=== PATIENT | male | born 1930 | race Caucasian/White ===

== ENCOUNTER → 2016-11-11 | Outpatient (CLI) | payer MEDICARE ==
[~2016-11-11] MED LIST: ALBUAER3 INH; AMLO5 PO; ASPI-147 PO; ATOR10TA15 PO; LUTE20CA PO; MULT1TAB85 PO; SOTA80TA PO; SPIRCAP INH; SYMB160A INH
[2016-11-11 13:28] LABS: AUTOMATED NEUTROPHIL # 3.8 TH/MM3 (1.8-7.7); BASOPHIL # 0.1 TH/MM3 (0-0.2); BASOPHIL % 1.4 % (0.0-2.0); EOSINOPHIL # 0.3 TH/MM3 (0-0.4); HEMATOCRIT 40.1 % (39.0-51.0); HEMO FLAGS DIFF FINAL; LYMPH % 23.1 % (9.0-44.0); LYMPHOCYTE # 1.5 TH/MM3 (1.0-4.8); MEAN CELL VOLUME 100.4 FL (80.0-100.0); MEAN CORPUSCULAR HEMOGLOBIN 35.5 PG (27.0-34.0); MEAN CORPUSCULAR HGB CONC 35.4 % (32.0-36.0); MONO % 11.1 % (0.0-8.0); NEUT % 60.4 % (16.0-70.0); PLATELET COUNT 209 TH/MM3 (150-450); RED BLOOD COUNT 3.99 MIL/MM3 (4.50-5.90); RED CELL DISTRIBUTION WIDTH 13.2 % (11.6-17.2); WHITE BLOOD COUNT 6.3 TH/MM3 (4.0-11.0)
[2016-11-11 13:49] LABS: ANION GAP 6 MEQ/L (5-15); AST (GOT) 20 U/L (15-37); BLOOD UREA NITROGEN 12 MG/DL (7-18); CHLORIDE 99 MEQ/L (98-107); GLOMERULAR FILTRATION RATE 72 ML/MIN (>89); GLUCOSE,FASTING 100 MG/DL (74-99); SODIUM (NA) 134 MEQ/L (136-145)
[2016-11-11 13:56] LABS: ALKALINE PHOSPHATASE 83 U/L (45-117); ALT (GPT) 21 U/L (12-78); LDL CHOLESTEROL 57 MG/DL (0-99); TOTAL BILIRUBIN ADULT 0.6 MG/DL (0.2-1.0)
== END ==
LOC: PLAB 08:46
PROVIDERS: ATTEND Family Medicine
DX: R73.01 Impaired fasting glucose (principal); J44.9 Chronic obstructive pulmonary disease, unspecified; E78.2 Mixed hyperlipidemia; I48.91 Unspecified atrial fibrillation
CPT/HCPCS: 36415; 80053; 80061; 85025

== ENCOUNTER → 2017-02-19 | Outpatient (CLI) | payer MEDICARE ==
[2017-02-19 08:22] LABS: BLOOD GAS BASE EXCESS 1.2 mmol/L (-2-2); BLOOD GAS CARBOXYHEMOGLOBIN 1.6 % (0-4); BLOOD GAS HCO3 25 mmol/L (22-26); BLOOD GAS METHEMOGLOBIN 0.9 % (0-2); BLOOD GAS O2 HGB SATURATION 92 % (90-100); BLOOD GAS OXYGEN CONTENT 18.5 Vol % (12.0-20.0); BLOOD GAS PCO2 38 mmHG (38-42); BLOOD GAS PO2 70 mmHG (61-120); BLOOD GAS TOTAL HGB 14.3 G/DL (12.0-16.0); CRITICAL VALUE NO; DRAW SITE RT RADIAL; FIO2 21 %; NUMBER OF ARTERIAL PUNCTURES 1; STAT NO; TEMP CORR TO 98.6; ULNAR PULSE PRESENT
--- NOTE | 2017-03-06 10:15 | RSPPFT ---
DATE OF PROCEDURE: 02/19/17 COMMENTS: VOLUMES DYNAMIC: FVC normal; FEV1 severely reduced. STATIC: RV, FRC moderately increased; TLC normal. FLOWS: FEV1% and FEF 25-75 severely reduced. DIFFUSION: Severely reduced. FLOW VOLUME LOOP; Pattern of variable intrathoracic airways obstruction. IMPRESSION: Very severe obstructive ventilator defect with hyperinflation and a very severe reduction in diffusion. No improvement post-bronchodilator noted.
== END ==
LOC: PHRSP 07:44
PROVIDERS: ATTEND Internal Medicine
DX: J44.9 Chronic obstructive pulmonary disease, unspecified (principal)
CPT/HCPCS: 36600; 82805; 94060; 94620; 94726; 94729

== ENCOUNTER → 2017-04-22 | Outpatient (CLI) | payer MEDICARE | LOC: PLAB 11:30 | PROVIDERS: ATTEND Internal Medicine | DX: J40 Bronchitis, not specified as acute or chronic (principal) | CPT/HCPCS: 87015; 87070; 87116; 87205; 87206 ==

== ENCOUNTER → 2017-05-18 | Outpatient (CLI) | payer MEDICARE ==
[2017-05-18 13:55] LABS: AUTOMATED NEUTROPHIL # 3.9 TH/MM3 (1.8-7.7); BASOPHIL # 0.1 TH/MM3 (0-0.2); BASOPHIL % 1.1 % (0.0-2.0); EOSINOPHIL # 0.2 TH/MM3 (0-0.4); EOSINOPHIL % 3.7 % (0.0-4.0); HEMATOCRIT 41.4 % (39.0-51.0); HEMO FLAGS DIFF FINAL; LYMPHOCYTE # 1.7 TH/MM3 (1.0-4.8); MEAN CELL VOLUME 103.4 FL (80.0-100.0); MEAN CORPUSCULAR HEMOGLOBIN 35.7 PG (27.0-34.0); MEAN CORPUSCULAR HGB CONC 34.6 % (32.0-36.0); MONO % 10.5 % (0.0-8.0); NEUT % 58.7 % (16.0-70.0); PLATELET COUNT 185 TH/MM3 (150-450); RED BLOOD COUNT 4.01 MIL/MM3 (4.50-5.90); RED CELL DISTRIBUTION WIDTH 13.3 % (11.6-17.2); WHITE BLOOD COUNT 6.6 TH/MM3 (4.0-11.0)
[2017-05-18 14:22] LABS: ANION GAP 6 MEQ/L (5-15); AST (GOT) 19 U/L (15-37); BICARBONATE 27.8 MEQ/L (21.0-32.0); BLOOD UREA NITROGEN 11 MG/DL (7-18); CHLORIDE 101 MEQ/L (98-107); GLOMERULAR FILTRATION RATE 77 ML/MIN (>89); GLUCOSE,FASTING 111 MG/DL (74-99); POTASSIUM 4.6 MEQ/L (3.5-5.1); SODIUM (NA) 135 MEQ/L (136-145)
[2017-05-18 14:29] LABS: ALKALINE PHOSPHATASE 84 U/L (45-117); ALT (GPT) 22 U/L (12-78); HDL CHOLESTEROL 72.1 MG/DL (40.0-60.0); LDL CHOLESTEROL 50 MG/DL (0-99); TOTAL BILIRUBIN ADULT 0.6 MG/DL (0.2-1.0)
== END ==
LOC: PLAB 10:06
PROVIDERS: ATTEND Family Medicine
DX: I10 Essential (primary) hypertension (principal); E78.5 Hyperlipidemia, unspecified; J44.9 Chronic obstructive pulmonary disease, unspecified; R06.6 Hiccough
CPT/HCPCS: 36415; 80053; 80061; 85025

== ENCOUNTER 2017-10-06 14:23 | Emergency (ER) | payer MEDICARE ==
[2017-10-06 14:57] VITALS: BP 123/72; PULSE 73; RESP 18; TEMP 97.6; O2SAT 93
[2017-10-06 15:33] LABS: AUTOMATED NEUTROPHIL # 3.6 TH/MM3 (1.8-7.7); BASOPHIL # 0.1 TH/MM3 (0-0.2); BASOPHIL % 1.4 % (0.0-2.0); EOSINOPHIL # 0.2 TH/MM3 (0-0.4); EOSINOPHIL % 3.5 % (0.0-4.0); HEMATOCRIT 39.2 % (39.0-51.0); HEMOGLOBIN 14.4 GM/DL (13.0-17.0); LYMPH % 24.9 % (9.0-44.0); LYMPHOCYTE # 1.5 TH/MM3 (1.0-4.8); MEAN CELL VOLUME 102.4 FL (80.0-100.0); MEAN CORPUSCULAR HEMOGLOBIN 37.6 PG (27.0-34.0); MEAN PLATELET VOLUME 7.5 FL (7.0-11.0); MONO % 11.8 % (0.0-8.0); MONOCYTE # 0.7 TH/MM3 (0-0.9); NEUT % 58.4 % (16.0-70.0); PLATELET COUNT 253 TH/MM3 (150-450); RED BLOOD COUNT 3.82 MIL/MM3 (4.50-5.90); RED CELL DISTRIBUTION WIDTH 13.4 % (11.6-17.2); WHITE BLOOD COUNT 6.1 TH/MM3 (4.0-11.0)
[2017-10-06 15:35] LABS: INTERNATIONAL NORMALIZED RATIO 1.1 RATIO; PROTHROMBIN TIME - PATIENT 11.2 SEC (9.8-11.6)
[2017-10-06 15:40] LABS: MEAN CORPUSCULAR HGB CONC 36.7 % (32.0-36.0)
--- NOTE | 2017-10-06 15:40 | RADRPT ---
EXAM DATE/TIME: 10/06/2017 15:20 [place] COMPARISON: No previous studies available for comparison. INDICATIONS : Short of breath, sent by doctor. MEDICAL HISTORY : None. SURGICAL HISTORY : None. ENCOUNTER: Initial ACUITY: 1 day PAIN SCORE: 0/10 LOCATION: Bilateral chest FINDINGS: PA and lateral views of the chest demonstrate the lungs to be symmetrically aerated without evidence of mass, infiltrate or effusion. The cardiomediastinal contours are unremarkable. Osseous structure s are intact. CONCLUSION: 1. No acute cardiopulmonary findings. Roberto Mccrary MD on October 06, 2017 at 15:34 Board Certified Radiologist. This report was verified electronically.
[2017-10-06 15:51] LABS: ALBUMIN 3.6 GM/DL (3.4-5.0); ALT (GPT) 25 U/L (12-78); AST (GOT) 21 U/L (15-37); BICARBONATE 28.9 MEQ/L (21.0-32.0); BLOOD UREA NITROGEN 13 MG/DL (7-18); CALCIUM 8.8 MG/DL (8.5-10.1); CHLORIDE 101 MEQ/L (98-107); CREATININE 0.97 MG/DL (0.60-1.30); GLOMERULAR FILTRATION RATE 74 ML/MIN (>89); GLUCOSE,RANDOM 106 MG/DL (74-106); MAGNESIUM 2.1 MG/DL (1.5-2.5); SODIUM (NA) 136 MEQ/L (136-145)
[2017-10-06 15:55] LABS: ALKALINE PHOSPHATASE 94 U/L (45-117); TOTAL BILIRUBIN ADULT 0.4 MG/DL (0.2-1.0); TOTAL PROTEIN 7.2 GM/DL (6.4-8.2); TROPONIN I LESS THAN 0.02 NG/ML (0.02-0.05)
[2017-10-06 16:44] VITALS: BP 170/76; PULSE 72; RESP 25; O2SAT 95
[2017-10-06] MEDS ORDERED: methylPREDNISolone SOD SUCC 125 MG/2 ML VIAL IV PUSH ONE (16:45)
[2017-10-06] MEDS: RESP: ALBUTEROL 2.5 MG/IPRATROPIUM 0.5 MG NEB (SCH) INH ×2 (16:51→16:52)
[2017-10-06 16:53] VITALS: O2SAT 97
--- NOTE | 2017-10-06 18:20 | PD ---
HPI Chief Complaint: Respiratory Symptoms Time Seen by Provider: 16:28 Travel History International Travel<30 days: No Contact w/Intl Traveler<30days: No Traveled to known affect area: No History of Present Illness HPI Patient is a 87 year old male who comes in complaining of SOB. He says he has been feeling short of breath for the past few days. He says he has history of COPD, he takes multiple medications, and uses oxygen at night. He says that he has been getting more short of breath on exertion. He says it does feel like his COPD. He denies having any chest pain. He denies cough or cold or fevers or chills. 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 Severity is mild to moderate. PFSH Past Medical History Heart Rhythm Problems: Yes (A FIB) COPD: Yes Diminished Hearing: No Hypertension: Yes Immunizations Current: Yes Myocardial Infarction: Yes Tetanus Vaccination: < 5 Years Influenza Vaccination: Yes Past Surgical History Abdominal Surgery: Yes (HERNIA) Eye Surgery: Yes Social History Alcohol Use: Yes (OCCASIONAL) Tobacco Use: No (50 pack years) Substance Use: No Allergies-Medications (Allergen,Severity, Reaction): Coded Allergies: No Known Allergies (Unverified , 07/08/16) Reported Meds & Prescriptions Reported Meds & Active Scripts Active Prednisone 50 Mg Tab 50 Mg PO DAILY 4 Days Reported Spiriva Handihaler (Tiotropium Inh) 18 Mcg Cap 18 Mcg INH DAILY 1 capsule = 18 mcg Sotalol (Sotalol HCl) 80 Mg Tab 40 Mg PO BID Multivitamin Men (Multiple Vitamins W/ Minerals) 1 Tab Tab 1 Tab PO DAILY Lutein 20 Mg Cap 20 Mg PO DAILY Symbicort Inh (Budesonide/Formoterol Fumarate) 160-4.5 Mcg/Act Aero 2 Puff INH Q12HR Atorvastatin (Atorvastatin Calcium) 10 Mg Tab 10 Mg PO HS Ecotrin Low Strength (Aspirin) 81 Mg Tabdr 81 Mg PO DAILY Norvasc (Amlodipine Besylate) 5 Mg Tab 5 Mg PO DAILY Proair Hfa 8.5 GM Inh (Albuterol Sulfate) 90 Mcg/Act Aer 2 Puff INH Q4-6H PRN 108 mcg/actuation Review of Systems Except as stated in HPI: all other systems reviewed are Neg General / Constitutional: No: Fever, Chills HENT: No: Headaches, Lightheadedness Cardiovascular: No: Chest Pain or Discomfort Respiratory: Positive: Shortness of Breath Gastrointestinal: No: Nausea, Vomiting Musculoskeletal: No: Myalgias, Edema Skin: No Rash, No Change in Pigmentation Neurologic: No: Weakness, Dizziness Physical Exam Narrative GENERAL: Awake and alert, in no acute distress. SKIN: Focused skin assessment warm/dry. No wounds or signs of infection. HEAD: Atraumatic. Normocephalic. EYES: Pupils equal and round. No scleral icterus. ENT: Mucous membranes pink and moist. NECK: Trachea midline. No JVD. CARDIOVASCULAR: Regular rate and rhythm. No murmur appreciated. RESPIRATORY: No accessory muscle use. Decreased breath sounds bilaterally with occasional wheezes. Breath sounds equal bilaterally. GASTROINTESTINAL: Abdomen soft, non-tender, nondistended. Hepatic and splenic margins not palpable. MUSCULOSKELETAL: No obvious deformities. No clubbing. No cyanosis. No edema. NEUROLOGICAL: Awake and alert. No obvious cranial nerve deficits. Motor grossly within normal limits. Normal speech. PSYCHIATRIC: Appropriate mood and affect; insight and judgment normal. Data Data Last Documented VS Vital Signs Date Time Temp Pulse Resp B/P (MAP) Pulse Ox O2 Delivery O2 Flow Rate FiO2 10/06/17 16:53 97 Nasal Cannula 2.00 10/06/17 16:44 25 10/06/17 16:44 72 170/76 (107) 10/06/17 14:57 97.6 Orders Orders Complete Blood Count With Diff (10/06/17 15:00) Comprehensive Metabolic Panel (10/06/17 15:00) B-Type Natriuretic Peptide (10/06/17 15:00) Act Partial Throm Time (Ptt) (10/06/17 15:00) Prothrombin Time / Inr (Pt) (10/06/17 15:00) Magnesium (Mg) (10/06/17 15:00) Ckmb (Isoenzyme) Profile (10/06/17 15:00) Troponin I (10/06/17 15:00) Chest, Pa & Lat (10/06/17 15:00) Electrocardiogram (10/06/17 ) Methylprednisolone So Succ Inj (Solumedr (10/06/17 16:45) Albuterol-Ipratropium Neb (Duoneb Neb) (10/06/17 16:45) Ed Discharge Order (10/06/17 18:39) Labs Laboratory Tests Test 10/06/17 15:10 White Blood Count 6.1 TH/MM3 Red Blood Count 3.82 MIL/MM3 Hemoglobin 14.4 GM/DL Hematocrit 39.2 % Mean Corpuscular Volume 102.4 FL Mean Corpuscular Hemoglobin 37.6 PG Mean Corpuscular Hemoglobin Concent 36.7 % Red Cell Distribution Width 13.4 % Platelet Count 253 TH/MM3 Mean Platelet Volume 7.5 FL Neutrophils (%) (Auto) 58.4 % Lymphocytes (%) (Auto) 24.9 % Monocytes (%) (Auto) 11.8 % Eosinophils (%) (Auto) 3.5 % Basophils (%) (Auto) 1.4 % Neutrophils # (Auto) 3.6 TH/MM3 Lymphocytes # (Auto) 1.5 TH/MM3 Monocytes # (Auto) 0.7 TH/MM3 Eosinophils # (Auto) 0.2 TH/MM3 Basophils # (Auto) 0.1 TH/MM3 CBC Comment AUTO DIFF Differential Comment AUTO DIFF CONFIRMED Prothrombin Time 11.2 SEC Prothromb Time International Ratio 1.1 RATIO Activated Partial Thromboplast Time 26.4 SEC Blood Urea Nitrogen 13 MG/DL Creatinine 0.97 MG/DL Random Glucose 106 MG/DL Total Protein 7.2 GM/DL Albumin 3.6 GM/DL Calcium Level 8.8 MG/DL Magnesium Level 2.1 MG/DL Alkaline Phosphatase 94 U/L Aspartate Amino Transf (AST/SGOT) 21 U/L Alanine Aminotransferase (ALT/SGPT) 25 U/L Total Bilirubin 0.4 MG/DL Sodium Level 136 MEQ/L Potassium Level 4.2 MEQ/L Chloride Level 101 MEQ/L Carbon Dioxide Level 28.9 MEQ/L Anion Gap 6 MEQ/L Estimat Glomerular Filtration Rate 74 ML/MIN Total Creatine Kinase 45 U/L Troponin I LESS THAN 0.02 NG/ML B-Type Natriuretic Peptide 52 PG/ML [facility] Medical Decision Making Medical Screen Exam Complete: Yes Emergency Medical Condition: Yes Medical Record Reviewed: Yes Interpretation(s) ECG shows NSR at 74, no ST elevation or depression, normal intervals. Differential Diagnosis COPD exacerbation vs Pneumonia vs ACS vs CHF Narrative Course Patient is a 87 year old male who comes in complaining of SOB. Exam shows decreased breath sounds, occasional wheezing. IV established, labs sent. Labs show no acute abnormalities. CXR shows no acute abnormalities. Last 24 hours Impressions Chest X-Ray 10/06/17 1500 Signed Impressions: Service Date/Time: Friday, October 06, 2017 15:20 - CONCLUSION: 1. No acute cardiopulmonary findings. Roberto Mccrary MD Patient given 3 duonebs and solumedrol. He reports feeling much better. He walked to the bathroom without return of his symptoms. I feel this is a COPD exacerbation, he does report that when the weather gets cold, he usually has an issue. He will be discharged with a coarse of steroids. Advised to follow up with his doctors. Advised to return to the ED as needed for any worsening symptoms. Diagnosis Primary Impression: COPD (chronic obstructive pulmonary disease) Qualified Codes: J44.1 - Chronic obstructive pulmonary disease with (acute) exacerbation Patient Instructions: COPD (Chronic Obstructive Pulmonary Disease) (ED), General Instructions Additional Instructions: Start the steroids tomorrow as you had a dose today already. Follow up with your doctors. Return to the ED as needed for any worsening symptoms. Scripts Albuterol Neb (Albuterol Neb) 2.5 Mg/3 Ml Neb 2.5 MG NEB Q4HR NEB Y for SHORTNESS OF BREATH, #60 NEBULE 0 Refills Prov: Jenn Martinez MD 10/06/17 Prednisone (Prednisone) 50 Mg Tab 50 MG PO DAILY for 4 Days, #4 TAB 0 Refills Prov: Jenn Martinez MD 10/06/17 Disposition: 01 DISCHARGE HOME Condition: Stable Jenn Martinez MD Oct 06, 2017 18:20
[2017-10-06] MEDS ORDERED: PRED50 PO (18:34)
[2017-10-06] MEDS ORDERED: ALBU0.08 NEB (18:52)
--- NOTE | 2017-10-07 23:43 | EKG ---
Date Performed: 10/06/2017 Time Performed: 15:05:20 PTAGE: 87 years EKG: Sinus rhythm NORMAL ECG PREVIOUS TRACING : 06/02/2014 05.48 Since the previous tracing, no significant change noted DOCTOR: Sean Ochoa Interpretating Date/Time 10/07/2017 23:40:02
== END 2017-10-06 18:55 | disposition home or self-care (01) ==
LOC: NEPE 14:23
DX: J44.1 Chronic obstructive pulmonary disease with (acute) exacerbation (principal); I10 Essential (primary) hypertension; Z79.899 Other long term (current) drug therapy; Z87.891 Personal history of nicotine dependence
CPT/HCPCS: 71046; 80053; 82550; 83735; 83880; 84484; 85025; 85610; 85730; 93005; 94664; 96374; 99285; J2930

== ENCOUNTER → 2017-12-18 | Outpatient (CLI) | payer MEDICARE ==
[~2017-12-18] MED LIST changes: +ALBU0.08 NEB; +PRED50 PO
[2017-12-18 10:55] LABS: AUTOMATED NEUTROPHIL # 4.3 TH/MM3 (1.8-7.7); BASOPHIL # 0.1 TH/MM3 (0-0.2); BASOPHIL % 1.2 % (0.0-2.0); EOSINOPHIL # 0.3 TH/MM3 (0-0.4); EOSINOPHIL % 3.7 % (0.0-4.0); HEMATOCRIT 41.6 % (39.0-51.0); HEMOGLOBIN 14.3 GM/DL (13.0-17.0); LYMPH % 22.9 % (9.0-44.0); LYMPHOCYTE # 1.6 TH/MM3 (1.0-4.8); MEAN CELL VOLUME 101.6 FL (80.0-100.0); MEAN CORPUSCULAR HEMOGLOBIN 34.8 PG (27.0-34.0); MEAN CORPUSCULAR HGB CONC 34.3 % (32.0-36.0); MEAN PLATELET VOLUME 8.3 FL (7.0-11.0); MONO % 12.5 % (0.0-8.0); MONOCYTE # 0.9 TH/MM3 (0-0.9); NEUT % 59.7 % (16.0-70.0); PLATELET COUNT 235 TH/MM3 (150-450); RED CELL DISTRIBUTION WIDTH 12.9 % (11.6-17.2); WHITE BLOOD COUNT 7.1 TH/MM3 (4.0-11.0)
[2017-12-18 11:06] LABS: ALBUMIN 3.7 GM/DL (3.4-5.0); AST (GOT) 23 U/L (15-37); BLOOD UREA NITROGEN 14 MG/DL (7-18); CALCIUM 8.9 MG/DL (8.5-10.1); CHLORIDE 103 MEQ/L (98-107); CHOLESTEROL 136 MG/DL (120-200); CREATININE 1.07 MG/DL (0.60-1.30); GLOMERULAR FILTRATION RATE 66 ML/MIN (>89); GLUCOSE,FASTING 106 MG/DL (74-99); SODIUM (NA) 139 MEQ/L (136-145); TRIGLYCERIDES 51 MG/DL (42-150)
[2017-12-18 11:20] LABS: ALKALINE PHOSPHATASE 87 U/L (45-117); ALT (GPT) 25 U/L (12-78); CHOLESTEROL/ HDL RATIO 2.27 RATIO; HDL CHOLESTEROL 59.7 MG/DL (40.0-60.0); LDL CHOLESTEROL 66 MG/DL (0-99); TOTAL BILIRUBIN ADULT 0.3 MG/DL (0.2-1.0); TOTAL PROTEIN 7.3 GM/DL (6.4-8.2)
== END ==
LOC: PLAB 07:30
PROVIDERS: ATTEND Family Medicine
DX: J44.9 Chronic obstructive pulmonary disease, unspecified (principal); I10 Essential (primary) hypertension; E78.5 Hyperlipidemia, unspecified
CPT/HCPCS: 36415; 80053; 80061; 85025